=== PATIENT | female | born 1935 | race Caucasian/White ===

== ENCOUNTER 2017-12-31 16:25 | Inpatient (IN) ==
[2017-12-31] MEDS ORDERED: fentaNYL 100 MCG/2 ML VIAL ONE (16:55)
[2017-12-31] MEDS ORDERED: ONDANSETRON 4 MG/2 ML VIAL IV STA (16:55)
[2017-12-31] MEDS ORDERED: ONDANSETRON 4 MG/2 ML VIAL ONE (16:55)
[2017-12-31] MEDS ORDERED: fentaNYL 100 MCG/2 ML VIAL IV STA (16:55)
[2017-12-31] MEDS ORDERED: PROMETHAZINE 25 MG/1 ML VIAL ONE (17:36)
[2017-12-31] MEDS ORDERED: PROMETHAZINE 25 MG/1 ML VIAL IM STA (17:51)
[2017-12-31] MEDS ORDERED: ONDANSETRON 4 MG/2 ML VIAL IV PRN (17:54)
[2017-12-31 17:57] LABS: Basophils % 0.3 % (0.0-0.8); Eosinophils % 0.3 % (0.00-10.9); Hematocrit 35.9 VOL% (35.7-47.0); Hemoglobin 12.1 GM/DL (12.0-16.0); Immature Granulocytes % 0.5 %; Immature Granulocytes Absolute 0.06 #; Lymphocytes # 0.9 10*3/uL (1.4-4.0); Lymphocytes % 7.1 % (21.3-54.2); Mean Corpuscular HGB Conc 33.7 GM/DL (32-36); Mean Corpuscular Hemoglobin 30 PG (27-34); Mean Corpuscular Volume 88.6 FL (87-102); Mean Platelet Volume 10.2 FL (9.6-12.0); Monocytes # 0.5 10*3/uL (0.11-0.8); Monocytes % 3.8 % (1.7-12.7); Neutrophils # 11.3 10*3/uL (1.4-7.4); Platelet Count 185 T/CUMM (130-400); Red Blood Count 4.05 MC/CUMM (3.8-5.5); Red Cell Distribution Width 12.2 % (9.3-17.3); White Blood Count 12.9 T/CUMM (4-12)
[2017-12-31 18:01] LABS: Apearance,Urine CLEAR (Clear); Bacteria,Urine Occasional /HPF (Few); Bilirubin,Urine Negative (Negative); Blood, Urine Small mg/dL (Negative); Glucose,Urine (UA) Negative (Negative); Ketones,Urine Negative (Negative); Nitrite,Urine Negative (Negative); Protein,Urine Negative; RBC,Urine 2 /HPF (0-4); Urine Color Yellow (Yellow); Urine Specific Gravity 1.006 (1.001-1.035); Urine Urobilinogen < 2.0 EU/DL (0.2-1.0); WBC,Urine <1 /HPF (0-6)
[2017-12-31 18:08] LABS: INR 0.9; Partial Thromboplastin Time 23.7 SECS (0-40)
[2017-12-31 18:30] LABS: Albumin 3.8 G/DL (3.4-5.0); Bilirubin,Total 0.4 MG/DL (0.2-1.0); Calcium 8.7 MG/DL (8.5-10.1); Osmolality,Calculated 282.7 MOS/KG (273-304); Potassium 3.7 MMOL/L (3.5-5.1); Total Protein 6.9 G/DL (6.4-8.3)
[2017-12-31] MEDS: SODIUM CHLORIDE 0.9% 1,000 ML IV SCH (18:54)
[2017-12-31] MEDS ORDERED: ENOXAPARIN 40 MG/0.4 ML SYRINGE SUBCUT SCH (21:00)
[2017-12-31] MEDS: cycloSPORINE OPH EMUL 1 VIAL BOTH EYES SCH (22:25)
[2017-12-31] MEDS: HYDROmorphone 2 MG/1 ML VIAL IV PRN (23:04)
[2018-01-01 06:17] LABS: Basophils % 0.3 % (0.0-0.8); Eosinophils % 0.2 % (0.00-10.9); Hematocrit 35.4 VOL% (35.7-47.0); Immature Granulocytes % 0.4 %; Immature Granulocytes Absolute 0.05 #; Lymphocytes # 1.4 10*3/uL (1.4-4.0); Lymphocytes % 12.4 % (21.3-54.2); Mean Corpuscular HGB Conc 33.9 GM/DL (32-36); Mean Corpuscular Hemoglobin 30 PG (27-34); Mean Corpuscular Volume 89.2 FL (87-102); Mean Platelet Volume 10.2 FL (9.6-12.0); Monocytes # 0.7 10*3/uL (0.11-0.8); Monocytes % 5.8 % (1.7-12.7); Neutrophils # 9.2 10*3/uL (1.4-7.4); Neutrophils % 80.9 % (38.7-73.9); Platelet Count 204 T/CUMM (130-400); Red Blood Count 3.97 MC/CUMM (3.8-5.5); Red Cell Distribution Width 12.6 % (9.3-17.3); White Blood Count 11.3 T/CUMM (4-12)
[2018-01-01 06:52] LABS: Albumin 3.6 G/DL (3.4-5.0); Bilirubin,Total 0.8 MG/DL (0.2-1.0); Calcium 8.9 MG/DL (8.5-10.1); Total Protein 6.7 G/DL (6.4-8.3)
[2018-01-01 06:53] LABS: Osmolality,Calculated 282.4 MOS/KG (273-304); Potassium 4.4 MMOL/L (3.5-5.1); Risk Ratio 2.95; VLDL CHOLESTEROL 36.8 MG/DL
[2018-01-01] MEDS: SODIUM CHLORIDE 0.9% 1,000 ML IV SCH (08:09)
[2018-01-01] MEDS: HYDROmorphone 2 MG/1 ML VIAL IV PRN (08:09)
[2018-01-01] MEDS: LISINOPRIL/HCTZ 10-12.5 MG TABLET PO SCH (08:11)
[2018-01-01] MEDS: PRAVASTATIN 40 MG TABLET PO SCH (08:38)
[2018-01-01] MEDS: cycloSPORINE OPH EMUL 1 VIAL BOTH EYES SCH ×2 (08:38→21:58)
[2018-01-01] MEDS: CITALOPRAM 20 MG TABLET PO SCH (08:38)
[2018-01-01] MEDS: PANTOPRAZOLE 40 MG TABLET PO SCH (08:38)
[2018-01-01] MEDS: ATENOLOL 25 MG TABLET PO SCH (08:39)
[2018-01-01] MEDS: DOXEPIN 25 MG CAPSULE PO SCH (08:39)
[2018-01-01] MEDS ORDERED: ceFAZolin 1,000 MG in SYRINGE 1 EACH IV ONE (10:00)
[2018-01-01] MEDS ORDERED: ceFAZolin 1,000 MG VIAL ONE (10:05)
[2018-01-01] MEDS ORDERED: PROMETHAZINE 25 MG/1 ML VIAL IM PRN (10:37)
[2018-01-01] MEDS ORDERED: BISACODYL 10 MG SUPP RECTAL PRN (10:37)
[2018-01-01] MEDS ORDERED: diphenhydrAMINE CAP 25 MG CAPSULE PO PRN (10:37)
[2018-01-01] MEDS ORDERED: LACTULOSE 20 GM/30 ML UDCUP PO PRN (10:37)
[2018-01-01] MEDS ORDERED: MAGNESIUM HYDROXIDE SUSP 30 ML UDCUP PO PRN (10:37)
[2018-01-01] MEDS ORDERED: TEMAZEPAM 7.5 MG CAPSULE PO PRN (10:37)
[2018-01-01] MEDS ORDERED: TRANEXAMIC ACID 1,000 MG/10 ML VIAL ONE (11:29)
[2018-01-01] MEDS ORDERED: fentaNYL 100 MCG/2 ML VIAL ONE (12:47)
[2018-01-01] MEDS ORDERED: MIDAZOLAM 2 MG/2 ML VIAL ONE (12:48)
[2018-01-01] MEDS ORDERED: ONDANSETRON 4 MG/2 ML VIAL ONE (12:48)
[2018-01-01] MEDS ORDERED: LACTATED RINGERS 1,000 ML IV ONE (12:59)
[2018-01-01] MEDS ORDERED: KETAMINE 500 MG/10 ML VIAL ONE (12:59)
[2018-01-01] MEDS ORDERED: SODIUM CHLORIDE 0.9% 100 ML IV ONE (12:59)
[2018-01-01] MEDS ORDERED: DEXAMETHASONE 10 MG/1 ML VIAL ONE (13:03)
[2018-01-01] MEDS ORDERED: SUCCINYLCHOLINE 200 MG/10 ML VIAL ONE (13:03)
[2018-01-01] MEDS ORDERED: PROPOFOL 200 MG/20 ML VIAL IV ONE (13:03)
[2018-01-01] MEDS ORDERED: ACETAMINOPHEN 1,000 MG/100 ML VIAL IV ONE (13:03)
[2018-01-01] MEDS ORDERED: SEVOFLURANE 1 UNIT/15 MINUTE INH ONE (13:04)
[2018-01-01] MEDS: ceFAZolin 1,000 MG in SYRINGE 1 EACH IV SCH ×2 (17:16→23:19)
[2018-01-01] MEDS: DOCUSATE SODIUM 100 MG CAPSULE PO SCH (21:58)
[2018-01-01] MEDS: GLUCOSAMINE 500 MG TABLET PO SCH (21:58)
[2018-01-02] MEDS: SODIUM CHLORIDE 0.9% 1,000 ML IV SCH (01:37)
[2018-01-02 02:25] LABS: Basophils % 0.2 % (0.0-0.8); Eosinophils % 0.1 % (0.00-10.9); Hematocrit 29.7 VOL% (35.7-47.0); Hemoglobin 10.1 GM/DL (12.0-16.0); Immature Granulocytes % 0.5 %; Immature Granulocytes Absolute 0.05 #; Lymphocytes # 1.1 10*3/uL (1.4-4.0); Lymphocytes % 10.8 % (21.3-54.2); Mean Corpuscular Hemoglobin 31 PG (27-34); Mean Corpuscular Volume 89.7 FL (87-102); Mean Platelet Volume 10.4 FL (9.6-12.0); Monocytes # 0.8 10*3/uL (0.11-0.8); Monocytes % 8.1 % (1.7-12.7); Neutrophils # 7.9 10*3/uL (1.4-7.4); Neutrophils % 80.3 % (38.7-73.9); Platelet Count 168 T/CUMM (130-400); Red Blood Count 3.31 MC/CUMM (3.8-5.5); Red Cell Distribution Width 12.6 % (9.3-17.3); White Blood Count 9.9 T/CUMM (4-12)
[2018-01-02] MEDS: FONDAPARINUX 2.5 MG/0.5 ML SYRINGE SUBCUT SCH (04:38)
[2018-01-02] MEDS: CITALOPRAM 20 MG TABLET PO SCH (11:08)
[2018-01-02] MEDS: DOCUSATE SODIUM 100 MG CAPSULE PO SCH ×2 (11:08→21:35)
[2018-01-02] MEDS: GLUCOSAMINE 500 MG TABLET PO SCH ×2 (11:09→21:38)
[2018-01-02] MEDS: PRAVASTATIN 40 MG TABLET PO SCH (11:09)
[2018-01-02] MEDS: DOXEPIN 25 MG CAPSULE PO SCH (11:13)
[2018-01-02] MEDS: LISINOPRIL/HCTZ 10-12.5 MG TABLET PO SCH (11:13)
[2018-01-02] MEDS: PANTOPRAZOLE 40 MG TABLET PO SCH (11:13)
[2018-01-02] MEDS: ATENOLOL 25 MG TABLET PO SCH (11:14)
[2018-01-02] MEDS: cycloSPORINE OPH EMUL 1 VIAL BOTH EYES SCH ×2 (11:14→21:36)
[2018-01-03] MEDS: FONDAPARINUX 2.5 MG/0.5 ML SYRINGE SUBCUT SCH (04:45)
[2018-01-03 04:46] LABS: Basophils % 0.3 % (0.0-0.8); Eosinophils # 0.2 10*3/uL (0.0-0.87); Eosinophils % 1.4 % (0.00-10.9); Hematocrit 31.2 VOL% (35.7-47.0); Hemoglobin 10.3 GM/DL (12.0-16.0); Immature Granulocytes % 1.5 %; Immature Granulocytes Absolute 0.18 #; Lymphocytes # 1.2 10*3/uL (1.4-4.0); Lymphocytes % 10.3 % (21.3-54.2); Mean Corpuscular Hemoglobin 31 PG (27-34); Mean Corpuscular Volume 92.3 FL (87-102); Mean Platelet Volume 10.5 FL (9.6-12.0); Monocytes % 8.3 % (1.7-12.7); Neutrophils # 9.1 10*3/uL (1.4-7.4); Neutrophils % 78.2 % (38.7-73.9); Platelet Count 162 T/CUMM (130-400); Red Blood Count 3.38 MC/CUMM (3.8-5.5); Red Cell Distribution Width 12.8 % (9.3-17.3); White Blood Count 11.6 T/CUMM (4-12)
[2018-01-03] MEDS: CITALOPRAM 20 MG TABLET PO SCH (09:06)
[2018-01-03] MEDS: ATENOLOL 25 MG TABLET PO SCH (09:06)
[2018-01-03] MEDS: PANTOPRAZOLE 40 MG TABLET PO SCH (09:06)
[2018-01-03] MEDS: GLUCOSAMINE 500 MG TABLET PO SCH ×2 (09:06→21:30)
[2018-01-03] MEDS: cycloSPORINE OPH EMUL 1 VIAL BOTH EYES SCH ×2 (09:06→21:30)
[2018-01-03] MEDS: DOCUSATE SODIUM 100 MG CAPSULE PO SCH ×2 (09:06→21:30)
[2018-01-03] MEDS: LISINOPRIL/HCTZ 10-12.5 MG TABLET PO SCH (09:06)
[2018-01-03] MEDS: PRAVASTATIN 40 MG TABLET PO SCH (09:28)
[2018-01-03] MEDS: DOXEPIN 25 MG CAPSULE PO SCH (09:29)
[2018-01-03] MEDS ORDERED: ACETAMINOPHEN 325 MG TABLET PO PRN (17:51)
[2018-01-03 19:03] LABS: Apearance,Urine CLEAR (Clear); Bacteria,Urine Occasional /HPF (Few); Bilirubin,Urine Negative (Negative); Blood, Urine Moderate mg/dL (Negative); Glucose,Urine (UA) Negative (Negative); Ketones,Urine Negative (Negative); Mucus,Urine Occasional /LPF (Occasional); Nitrite,Urine Negative (Negative); Protein,Urine 30 MG/DL; RBC,Urine 29 /HPF (0-4); Urine Color Yellow (Yellow); Urine Specific Gravity 1.012 (1.001-1.035); Urine Urobilinogen < 2.0 EU/DL (0.2-1.0); WBC,Urine 3 /HPF (0-6)
[2018-01-03] MEDS: ALBUTEROL/IPRATROPIUM 3 ML NEB RESP TX SCH (20:05)
[2018-01-04] MEDS: ALBUTEROL/IPRATROPIUM 3 ML NEB RESP TX SCH ×4 (00:30→19:37)
[2018-01-04] MEDS: FONDAPARINUX 2.5 MG/0.5 ML SYRINGE SUBCUT SCH (07:40)
[2018-01-04] MEDS ORDERED: NAPROXEN 250 MG TABLET PO PRN (09:39)
[2018-01-04] MEDS ORDERED: NAPROXEN 500 MG TABLET PO PRN (09:39)
[2018-01-04] MEDS: GLUCOSAMINE 500 MG TABLET PO SCH ×2 (09:44→21:28)
[2018-01-04] MEDS: CITALOPRAM 20 MG TABLET PO SCH (09:44)
[2018-01-04] MEDS: DOCUSATE SODIUM 100 MG CAPSULE PO SCH ×2 (09:44→21:28)
[2018-01-04] MEDS: PRAVASTATIN 40 MG TABLET PO SCH (09:44)
[2018-01-04] MEDS: DOXEPIN 25 MG CAPSULE PO SCH (09:45)
[2018-01-04] MEDS: LISINOPRIL/HCTZ 10-12.5 MG TABLET PO SCH (09:45)
[2018-01-04] MEDS: cycloSPORINE OPH EMUL 1 VIAL BOTH EYES SCH ×2 (09:45→21:28)
[2018-01-04] MEDS: PANTOPRAZOLE 40 MG TABLET PO SCH (09:45)
[2018-01-04] MEDS: ATENOLOL 25 MG TABLET PO SCH (09:45)
[2018-01-04] MEDS ORDERED: DOXEPIN 25 MG CAPSULE PO SCH (21:00)
[2018-01-05] MEDS: ALBUTEROL/IPRATROPIUM 3 ML NEB RESP TX SCH ×3 (00:30→13:41)
[2018-01-05] MEDS: FONDAPARINUX 2.5 MG/0.5 ML SYRINGE SUBCUT SCH (05:35)
[2018-01-05] MEDS: LISINOPRIL/HCTZ 10-12.5 MG TABLET PO SCH (09:03)
[2018-01-05] MEDS: PRAVASTATIN 40 MG TABLET PO SCH (09:03)
[2018-01-05] MEDS: DOCUSATE SODIUM 100 MG CAPSULE PO SCH (09:03)
[2018-01-05] MEDS: CITALOPRAM 20 MG TABLET PO SCH (09:03)
[2018-01-05] MEDS: ATENOLOL 25 MG TABLET PO SCH (09:03)
[2018-01-05] MEDS: GLUCOSAMINE 500 MG TABLET PO SCH (09:03)
[2018-01-05] MEDS: PANTOPRAZOLE 40 MG TABLET PO SCH (09:03)
[2018-01-05] MEDS: cycloSPORINE OPH EMUL 1 VIAL BOTH EYES SCH (09:05)
[2018-01-05 16:25] VITALS: BP 89/52
== END 2018-01-05 16:15 | disposition swing bed (61) | DRG 470 ==
LOC: N.ED 16:25 → N.EDINP 17:48 → SUATTDRO 17:48 → N.3E 19:31
PROVIDERS: ADMIT Internal Medicine; ATTEND Internal Medicine